=== PATIENT | male | born 1930 | race Caucasian/White ===

== ENCOUNTER → 2016-09-06 | Outpatient (CLI) | payer MEDICARE, BC ==
--- NOTE | 2016-09-06 13:29 | CT ---
EXAMINATION TYPE: CT lumbar spine wo con DATE OF EXAM: 09/06/2016 1:16 PM COMPARISON: NONE HISTORY: 86-year-old male with low back pain, spinal stenosis TECHNIQUE: Contiguous axial scanning of the lumbar spine without IV contrast. Coronal and sagittal re constructions performed. CT DLP: 833 mGycm Automated exposure control for dose reduction was used. FINDINGS: Multilevel advanced disc/endplate degenerative change with degenerated, desiccated, narrowed discs wi th disc osteophyte complex formation and endplate sclerosis. Vertebral body heights are preserved. Hypertrophic facet arthropathy mid to lower lumbar spine. There is a component of mild congenital spinal canal stenosis with AP canal dimension of 1.3 cm. There is grade 1 retrolisthesis at L3-L4 and L4-L5 secondary to facet arthropathy. A grade 1, nearly grade 2 anterolisthesis at L5-S1 secondary to bilateral L5 pars defects. The degenerative changes result in a dextroconvex scoliotic curvature of the lumbar spine. At T12-L1, there is some bulging disc and facet arthropathy. There may be mild right neuroforaminal s tenosis but no significant spinal canal stenosis. At L1-L2, diffuse bulging disc and facet arthropathy results in mild to moderate left neural foramina l stenosis without significant spinal canal stenosis. At L2-L3, there is disc osteophyte complex with facet arthropathy. Changes result in moderate left an d mild right neural foraminal stenosis with slight accentuation of the mild congenital canal narrowin g. At L3-L4, there is facet arthropathy with disc osteophyte complex and grade 1 retrolisthesis. Disc os teophyte complex may abut the traversing right L4 nerve root. There is moderate to severe left and mi ld right neuroforaminal stenosis. Mild narrowing of the spinal canal. At L4-L5, there is hypertrophic facet arthropathy, bulging disc, and grade 1 retrolisthesis. Changes result in moderate to severe right and [id number] left neuroforaminal stenosis. No spinal canal stenosis. At L5-S1, grade 1, nearly grade 2 anterolisthesis from bilateral L5 pars defects. There is hypertroph ic facet arthropathy and disc osteophyte complex. Changes result in severe right and mild left neurof oraminal stenosis. No significant spinal canal stenosis. IMPRESSION: 1. ADVANCED MULTILEVEL DISC/ENDPLATE DEGENERATIVE CHANGE WITH A DEGENERATED DEXTROCONVEX SCOLIOSIS. 2. HYPERTROPHIC FACET ARTHROPATHY MID TO LOWER LUMBAR SPINE WITH GRADE 1 RETROLISTHESES AT L3-L4 AND L4-L5. 3. ADDITIONAL GRADE 1, NEARLY GRADE 2 ANTEROLISTHESIS AT L5-S1 SECONDARY TO BILATERAL L5 PARS DEFECTS . 4. 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 NO ROXANE CANAL COMPROMISE. 5. VARIABLE MODERATE NEUROFORAMINAL STENOSES IN THE MID TO LOWER LUMBAR SPINE, SEVERE ON THE RIGHT AT L5-S1. 6. DISC OSTEOPHYTE COMPLEX AT L3-L4 MAY ABUT THE TRAVERSING RIGHT L4 NERVE ROOT.
--- NOTE | 2016-09-06 14:13 | XR ---
EXAMINATION TYPE: XR lumbar spine with bend/flex DATE OF EXAM: 09/06/2016 1:17 PM COMPARISON: Correlation CT same day HISTORY: 86-year-old male spinal stenosis, lumbar region, chronic low back pain TECHNIQUE: 8 views FINDINGS: There is a degenerated dextroconvex scoliosis. Advanced disc/endplate degenerative change at multiple levels with disc height loss, endplate scleros is, and spondylosis. Hypertrophic facet arthropathy throughout. There is grade 1 retrolisthesis at L3-L4 and L4-L5. There is anterolisthesis at L5-S1 which which acc entuates on flexion by approximately 4 mm. There is possible further accentuation of the anterolisthe sis on extension by approximately 1 cm. No significant accentuation of the L3-L4 L4-L5 retrolisthesis on extension. IMPRESSION: 1. Degenerated dextroconvex scoliosis. Degenerative grade 1 retrolistheses at L3-L4 and L4-L5. 2. Anterolisthesis at L5-S1 secondary to pars defects as seen on CT. There is dynamic subluxation wit h flexion (by 4 mm) and even greater dynamic anterior subluxation upon extension (nearly 1 cm).
== END ==
LOC: RADCTMAIN 12:40
PROVIDERS: ATTEND Neurological Surgery
DX: M48.06 Spinal stenosis, lumbar region (principal); M43.16 Spondylolisthesis, lumbar region; M47.816 Spondylosis without myelopathy or radiculopathy, lumbar region; M46.86 Other specified inflammatory spondylopathies, lumbar region; M41.86 Other forms of scoliosis, lumbar region; M43.5X6 Other recurrent vertebral dislocation, lumbar region
CPT/HCPCS: 72114; 72131

== ENCOUNTER → 2016-10-22 | Outpatient (CLI) | payer MEDICARE, BC ==
[~2016-10-22] MED LIST: REGADENOSON 0.4 MG/5 ML SYRINGE IV ONE
--- NOTE | 2016-10-22 13:26 | EST ---
DATE OF SERVICE: 10/22/2016 AGE: 86Y SEX: M HT: 5'9" WT: 204 lbs. Protocol Jae: Other: Lexiscan Cardiolite Stage: Dur. of Exercise: *Heart Rate Blood Pressure *Rest: 64 Rest: 179/57 * *Max. Achieved: 80 Maximum BP: 179/57 85% PMHR: 113 100% PMHR: 133 *METS: INDICATIONS: Pre-op. MEDICATIONS: The patient was given Lexiscan injection over a period of 15 seconds. Peak heart rate of 80 was achieved. Maximum blood pressure of 179/57 mmHg was noted. Resting EKG shows normal sinus rhythm with normal IN interval and QRS duration and normal ST-T waves. No ST segment depression suggestive of ischemia is noted. The results of the nuclear study will follow.
--- NOTE | 2016-10-22 13:59 | NM ---
"EXAMINATION TYPE: NM stress lexiscan cardiolite DATE OF EXAM: 10/22/2016 12:03 PM COMPARISON: NONE HISTORY: Preop TECHNIQUE: After the intravenous administration of 11 mCi Tc 99m Sestamibi - Cardiolite resting SPEC T images acquired 50 minutes post injection. The patient received 0.4mg Lexiscan, 27.5 mCi Tc 99m Sestamibi - Stress images obtained [address] injection FINDINGS: Review of stress and rest SPECT images demonstrates mild decreased reaffirms uptake along the inferol ateral left ventricular myocardium on stress and rest images. On stress images there is decreased upt leif along the anterolateral left ventricle as compared to rest images. Gated analysis shows normal w all motion with an estimated left ventricular ejection fraction of 60 %. 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
--- NOTE | 2016-10-24 11:33 | ECHOF ---
Referral Reason:Z01.81 pre op MEASUREMENTS -------- HEIGHT: 175.3 cm WEIGHT: 92.5 kg BP: 131/59 RVIDd: 3.1 cm (< 3.3) IVSd: 1.1 cm (0.6 - 1.1) LVIDd: 4.7 cm (3.9 - 5.3) LVPWd: 1.1 cm (0.6 - 1.1) IVSs: 1.7 cm LVIDs: 3.1 cm LVPWs: 1.6 cm LA Diam: 3.4 cm (2.7 - 3.8) LAESV Index (A-L): 19.00 ml/m Ao Diam: 2.7 cm (2.0 - 3.7) AV Cusp: 2.1 cm (1.5 - 2.6) MV EXCURSION: 18.221 mm (> 18.000) MV EF SLOPE: 36 mm/s (70 - 150) EPSS: 1.3 cm MV E Kyle: 0.58 m/s MV DecT: 323 ms MV A Kyle: 1.04 m/s MV E/A Ratio: 0.56 RAP: 5.00 mmHg RVSP: 30.53 mmHg FINDINGS -------- Sinus rhythm. This was a technically adequate study. The left ventricular size is normal. There is borderline concentric left ventricular hypertrophy. Overall left ventricular systolic function is normal with, an EF between 55 - 60 %. The right ventricle is normal in size and function. Normal LA size by volume 22+/-6 ml/m2. The right atrium is normal in size. There is mild aortic valve sclerosis. Mild mitral annular calcification present. Mild tricuspid regurgitation present. Right ventricular systolic pressure is normal at < 35 mmHg. The pulmonic valve was not well visualized. The aortic root size is normal. Normal inferior vena cava with normal inspiratory collapse consistent with estimated right atrial pressure of 5 mmHg. There is no pericardial effusion. CONCLUSIONS -------- 1. Sinus rhythm. 2. Mild mitral annular calcification present. 3. Mild tricuspid regurgitation present. 4. Right ventricular systolic pressure is normal at < 35 mmHg. 5. The pulmonic valve was not well visualized. 6. The aortic root size is normal. 7. Normal inferior vena cava with normal inspiratory collapse consistent with estimated right atrial pressure of 5 mmHg. 8. There is no pericardial effusion. 9. This was a technically adequate study. 10. The left ventricular size is normal. 11. There is borderline concentric left ventricular hypertrophy. 12. Overall left ventricular systolic function is normal with, an EF between 55 - 60 %. 13. The right ventricle is normal in size and function. 14. Normal LA size by volume 22+/-6 ml/m2. 15. The right atrium is normal in size. 16. There is mild aortic valve sclerosis. AIR[employer]FT IN[employer]UMENT ENGINEER: Estefania Herrera RDCS
== END ==
LOC: RADNMMAIN 09:05
PROVIDERS: ATTEND Internal Medicine
DX: Z01.818 Encounter for other preprocedural examination (principal)
CPT/HCPCS: 93017; 93306; 78452; A9500; J2785

== ENCOUNTER → 2016-11-06 | Outpatient (CLI) | payer MEDICARE, BC ==
[2016-11-06 08:18] LABS: CH 32.1; CHCM 33.7; HCT 45.3 % (39.0-53.0); HDW 2.51; HGB 15.2 gm/dL (13.0-17.5); MCH 32.2 pg (25.0-35.0); MCHC 33.7 g/dL (31.0-37.0); MCV 95.7 fL (80.0-100.0); Mean Platelet Volume 8.4; RBC 4.73 m/uL (4.30-5.90); RDW 13.4 % (11.5-15.5); WBC 6.8 k/uL (3.8-10.6)
[2016-11-06 09:26] LABS: Calcium 9.2 mg/dL (8.4-10.2); Potassium 4.6 mmol/L (3.5-5.1); Total Bilirubin 0.6 mg/dL (0.2-1.3); Total Protein 6.9 g/dL (6.3-8.2); Uric Acid 6.3 mg/dL (3.5-8.5)
== END ==
LOC: LABWHC1 07:18
PROVIDERS: ATTEND Internal Medicine
DX: E87.8 Other disorders of electrolyte and fluid balance, not elsewhere classified (principal); E87.4 Mixed disorder of acid-base balance; R53.83 Other fatigue
CPT/HCPCS: 36415; 80053; 80061; 84443; 84550; 85027

== ENCOUNTER → 2017-07-24 | Outpatient (CLI) | payer MEDICARE, BC ==
[2017-07-24 12:41] VITALS: BP 123/78; PULSE 76; RESP 20
--- NOTE | 2017-07-24 13:36 | P.CONS ---
History of Present Illness - Reason for Consult Consult date: 07/24/17 - History of Present Illness This is a 87 years old male with chronic history of severe low back pain started more than 6 years ago, he denies any initiating event he denies any history of trauma or heavy lifting or falling accident, reported the pain is constant increased with any activity and he was treated in the past with multiple lumbar epidural steroid injections done by Dr. [facility], and he reported that he had no benefit from the lumbar epidural steroid injections, pain mostly localized in the low back area, increased with any activity walking and bending, and it's interfering with his quality of life and ability to activity of daily livings, he denies any change in bowel movement or urination he denies any motor or sensory deficit, is able to ambulate on his own but the intensity of the pain interfering with his ability to ambulate Past Medical History Past Medical History: Hearing Disorder / Deafness, Hypertension, Musculoskeletal Disorder, Pneumonia Additional Past Medical History / Comment(s): Arthritis History of Any Multi-Drug Resistant Organisms: None Reported Additional Past Surgical History / Comment(s): outer rt. thigh sugery with dr. Hamlin Past Anesthesia/Blood Transfusion Reactions: No Reported Reaction Past Psychological History: Anxiety, Depression Smoking Status: Former smoker Medications and Allergies Home Medications Medication Instructions Recorded Confirmed Type Aspirin 1 tab PO DAILY 07/24/17 07/24/17 History FLUoxetine HCL 1 tab PO DAILY 07/24/17 07/24/17 History Levothyroxine Sodium [Synthroid] 1 tab PO DAILY 07/24/17 07/24/17 History Lisinopril [Zestril] 1 tab PO DAILY 07/24/17 07/24/17 History Lisinopril [Zestril] 1 tab PO DAILY 07/24/17 07/24/17 History Simvastatin [Zocor] 1 tab PO DAILY 07/24/17 07/24/17 History Vit C/E/Zn/Coppr/Lutein/Zeaxan 1 tab PO DAILY 07/24/17 07/24/17 History [Preservision Areds 2 Softgel] buPROPion [Wellbutrin] 1 tab PO DAILY 07/24/17 07/24/17 History Allergies Allergy/AdvReac Type Severity Reaction Status Date / Time Penicillins Allergy Rash/Hives Unverified 07/24/17 12:06 Physical Exam Vitals: Vital Signs Pulse Resp BP Pulse Ox 07/24/17 12:37 76 20 123/78 96 Intake and Output 07/23/17 07/24/17 07/24/17 22:59 06:59 14:59 Other: Weight 90.718 kg Patient Weight 07/25/17 06:59 Weight 90.718 kg Social history : not smoker , NO ETOH , NO Illegal drugs use Review of Systems : 1- Constitutional : no chills , no fever , no night sweats , 2- Ears : no ear discharge , no change in hearing 3-Nose, Mouth ,Throat ; no bleeding gums, no sore throat , no epistaxis , 4-Cardiovascular : Denies chest pain, , no orthopnea , no palpitation 5-Respiratory : Denies cough , no dyspnea , no hemoptysis 6-Gastrointestinal :, no change in bowel habits , no coffee- ground emesis . 7-Genitourinary : No hematuria , no discharge , no incontinence, 8-Musculoskeletal : gait dysfunction , report low back pain , 9- Neurological : no ataxia , no tremor , no sezure , 10-Psychatric , no suicidal ideation no hallucination 11- Endocrine : no cold intolerence , no polyuria , no polydypsia , 12-Hematologic : no easy bleeding , no easy brusing , 13-Allergic / immunology : no angioedema , no wheezing ,no allergic rhinitis 14-Integumentary : no brttle nails , no change hair / nails , no foot/leg ulcers . Physical Examinations : 1-Constitutional : Cooperative , not in acute distress . 2-HEENT : nech ; supple , no Lymphadenopathy , no Thyromegaly , :eyes , no icterus, no photophobia . ENT : , normal oropharynx , no Thrush 3- Respiratory : Chest clear to auscultations Bilaterally , no wheezing . 4- Cardiovascular : regular rate and rhythem , S1 , S2 , no S3 , no S4. 5- Gastrointestinal: abdomen soft no tenderness , no organomegally . 6- Genitourinary : Defferred . 7-Integumentary : No cellulitis , no ulcers , normal skin turgor , no cyanotic . 8- neurologic : Cranial nerve II to XII intact , no focal neurological deffecit 9-psychatric : alert , oriented X 3 , appropriate affect , intact judgment and insight . 10-Lymphatic : no Lymphadenopathy. 11- musculoskeltal: abnormal gait Lumber spine moter stegnth lower extremities ,thigh and legs 4- 5/5 Right side , 4-5/5 Left side deep tendon reflexes : normal Knee Jerk , normal ankle Jerk positive lumber facet Loading Test Range of motion of the lumbar spine Flexion 60 degrees, extension 10 degrees strait leg raising test negative Fabere test negative mild tenderness over the Sacroiliac joint on the R and L sides Results Comments: Computed tomography scan of the lumbar spine showed multilevel lumbar degenerative disc disease and multilevel lumbar facet arthropathy Assessment and Plan Plan: Assessment and plan= chronic low back pain secondary to lumbar degenerative disc disease , lumbar spondylosis with lumbar facet arthropathy , Clinically most of the pain coming from the facetogenic component, patient could benefit from diagnostic medial branch block lumbar area and L34/L4-L5/L5- S1 we will do it , twice and if he had good results then we will proceed with a radiofrequency ablation of the medial branch lumbar area procedure risk and benefits and alternatives discussed with the patient he agreed with the preceding Time with Patient: Greater than 30
== END | disposition home or self-care (01) ==
LOC: PNWHC3 11:13
PROVIDERS: ATTEND Specialist
DX: G89.29 Other chronic pain (principal); M54.5 Low back pain; M51.36 Other intervertebral disc degeneration, lumbar region; M47.816 Spondylosis without myelopathy or radiculopathy, lumbar region; M46.86 Other specified inflammatory spondylopathies, lumbar region; H91.90 Unspecified hearing loss, unspecified ear; I10 Essential (primary) hypertension; F41.9 Anxiety disorder, unspecified; F32.9 Major depressive disorder, single episode, unspecified; Z79.52 Long term (current) use of systemic steroids; Z98.890 Other specified postprocedural states; Z87.891 Personal history of nicotine dependence; Z79.82 Long term (current) use of aspirin; Z79.899 Other long term (current) drug therapy; Z88.0 Allergy status to penicillin
CPT/HCPCS: 99211

== ENCOUNTER 2017-07-29 08:46 | Day surgery (SDC) | payer MEDICARE, BC ==
[2017-07-28 11:22] VITALS: BMI 29.5
[2017-07-29 09:40] VITALS: RESP 16; TEMP 97.4
[2017-07-29] MEDS ORDERED: LACTATED RINGERS 1,000 ML IV SCH (09:45)
[2017-07-29] MEDS ORDERED: LIDOCAINE 1% 20 ML VIAL (10MG/ML) FOR IV START INTRADERMA ONE (09:51)
--- NOTE | 2017-07-29 10:35 | P.PCN ---
Date of Procedure: 07/29/17 Surgeon: Narciso Rivers Pathology: none sent Condition: stable Disposition: PACU Description of Procedure: PREOPERATIVE DIAGNOSIS: Lumbar spondylosis without myelopathy and facet arthropathy. POSTOPERATIVE DIAGNOSIS: Lumbar spondylosis without myelopathy and facet arthropathy. PROCEDURE DESCRIPTION: Patient presents for L3-L4, L4-L5 and L5-S1 diagnostic medial branch blocks under fluoroscopic guidance. The procedure is performed using fluoroscopic guidance during needle placement to assure proper position and maximize safety. ANESTHESIA: Local with 1% lidocaine; conscious sedation EBL: Minimal PROCEDURE INDICATION: Patient with lumbar facet arthropathy signs and symptoms, here for diagnostic medial branch block #1 due to failure of conservative therapy. Pt does not take any blood thinning medications. PROCEDURE DESCRIPTION: The patient was seen and identified in the preoperative area. Risks, benefits, complications, and alternatives were discussed with the patient (including but not limited to incomplete pain relief, bleeding, infection, nerve damage, and allergies to medications), the patient agreed to proceed with the procedure and signed the consent after all questions were answered. Patient was taken to the OR and time out was completed to verify proper patient, position, laterality of pain, and allergies. Pt was placed in the prone position and a pillow was placed under the abdomen to reduce lumbar lordosis. The lumbosacral area was prepped and draped in the usual sterile fashion. Using oblique fluoroscopy, the eye of the "Macario dog" of right L4 vertebral body, which corresponds to the path of the medial branch originating from the level above, which is L3 in this case, was identified. Subsequently, a 22-gauge 3.5-inch spinal needle was inserted under fluoroscopic guidance toward the eye of the "Macario dog" of the right L4 vertebral body, corresponding to the junction of the superior articular process and the transverse process of the pedicle of the same level. After needle tip confirmation on lateral view and after negative aspiration for CSF and blood and without paresthesias, 1 mL of a 6 ml solution of 0.5% preservative-free bupivacaine and 40 mg Kenalog was injected. Subsequently the needle was withdrawn intact and the same procedure was repeated for the right L4, right L5, left L3, left L4, and left L5 medial branches which together with right L3 medial branch correspond to the sensory innervation of the bilateral L3-L4, L4-L5, and L5-S1 facet joints. Needle was withdrawn intact after each injection. At the end of the procedure, the skin was cleansed and bandages were applied. COMPLICATIONS: None. DISPOSITION/PLAN: The patient taken to the recovery area after the procedure in a stable condition for observation. Patient was reexamined prior to discharge and there were no issues. Patient was discharged home, accompanied by an adult, after meeting discharged criteria. Discharge instructions were give to the patient by the staff. Patient was specifically instructed not to drive today and to rest for the rest of the day. Patient will return for repeat LMBB bilateral in 3-4 weeks.
[2017-07-29 10:46] VITALS: BP 113/66; PULSE 71
[2017-07-29] MEDS ORDERED: IV FLUID CONTINUATION 1,000 ML IV ONE (10:46)
--- NOTE | 2017-07-29 11:20 | FL ---
Fluoroscopy HISTORY: Pain 23 seconds fluoroscopy time supplied to the referring clinician. 6 intraoperative C-arm images docum ent the procedure. See dictated report from anesthesia.
== END 2017-07-29 11:27 | disposition home or self-care (01) ==
LOC: ORPAIN 08:46
PROVIDERS: ATTEND Anesthesiology
DX: G89.29 Other chronic pain (principal); M48.061 Spinal stenosis, lumbar region without neurogenic claudication; M51.36 Other intervertebral disc degeneration, lumbar region; M47.816 Spondylosis without myelopathy or radiculopathy, lumbar region; I10 Essential (primary) hypertension; F32.9 Major depressive disorder, single episode, unspecified; M19.90 Unspecified osteoarthritis, unspecified site; F41.9 Anxiety disorder, unspecified; H91.90 Unspecified hearing loss, unspecified ear; Z88.0 Allergy status to penicillin; Z79.82 Long term (current) use of aspirin; Z79.899 Other long term (current) drug therapy; Z87.891 Personal history of nicotine dependence
CPT/HCPCS: 64493; 64494; 64495; J2250; J3301; 99152

== ENCOUNTER 2017-08-19 08:22 | Day surgery (SDC) | payer MEDICARE, BC ==
[2017-08-12 12:28] VITALS: BMI 29.1
[~2017-08-19 08:22] MED LIST changes: +LACTATED RINGERS 1,000 ML IV SCH; -REGADENOSON 0.4 MG/5 ML SYRINGE IV ONE
[2017-08-19 08:39] VITALS: RESP 16; TEMP 97.2
--- NOTE | 2017-08-19 10:05 | P.PCN ---
Date of Procedure: 08/19/17 Surgeon: Emil St Description of Procedure: PREOPERATIVE DIAGNOSIS : 1- Lumbar spondylosis with Facet Arthropathy without myelopathy . 2- Lumber degenerative disc disease POSTOPERATIVE DIAGNOSIS: 1- Lumbar spondylosis with Facet Arthropathy without myelopathy . 2- Lumber degenerative disc disease PROCEDURE: Diagnostic bilateral L3 -4 , L4 -5 , and L5-S1 medial branch block under fluoroscopy ANESTHESIA: Local with 1% lidocaine; IV sedation with Versed 2 mg . EBL: Minimal COMPLICATION: None. PROCEDURE INDICATION: Chronic low back pain secondary to Facet arthropathy unresponsive to conservative treatment. PROCEDURE DESCRIPTION: the patient was seen and identified in the preop holding area , risks and benefits and possible complications of the procedure and alternatives were discussed with the patient, and the patient agreed to proceed with the procedure and signed the consent. IV was started and vital signs monitored during the procedure and fluoroscopy was used to maximize the benefit and accuracy of the needle placement, sedation was given to decrease patient anxiety, patient was taken to the procedure room and placed in prone position vital signs monitored. The patient was seen in the preop holding area consent was obtained then she was brought into the procedure room and placed in prone position. Skin was prepped with Chloraprep and draped in a sterile manner. Lidocaine 1% was used to numb the skin up at the target points that were chosen as follows: at the L5-S1 level which corresponds to the dorsal ramus of L5 the target points were at the superior medial aspect of the sacral ala on each side of the spine on the AP view of fluoroscopy, and for theL2, L3 and L4 medial branches the target points were the connection between the transverse process and the superior to go process of L3, L4 and L5 respectively on the oblique views of fluoroscopy. I used 22-gauge 3-1/2 inch Quincke spinal needles for this procedure and after contacting bone at the target points mentioned above I injected 1 mL of a mixture of 40 mg of Kenalog and 5 mls of Marcaine 0.5% PF . Patient tolerated procedure well. At the end of the procedure the needles removed and a bandage applied after the skin was cleaned the cleaning solution. patient was then taken to the recovery room in stable condition and monitored in the recovery room for 20-30 minutes and discharged home in stable condition after discharge criteria met .
[2017-08-19] MEDS ORDERED: IV FLUID CONTINUATION 1,000 ML IV ONE (10:11)
[2017-08-19 10:26] VITALS: BP 134/65; PULSE 67
--- NOTE | 2017-08-19 11:23 | FL ---
EXAMINATION TYPE: FL guided pain mgmt statistic DATE OF EXAM: 08/19/2017 HISTORY: Flouroscopy time 19 seconds of fluoroscopy provided. IMPRESSION: 1. Fluoroscopy time.
== END 2017-08-19 10:56 | disposition home or self-care (01) ==
LOC: ORPAIN 08:22
PROVIDERS: ATTEND Anesthesiology
DX: G89.29 Other chronic pain (principal); M47.816 Spondylosis without myelopathy or radiculopathy, lumbar region; M51.36 Other intervertebral disc degeneration, lumbar region; I10 Essential (primary) hypertension
CPT/HCPCS: 64493; 64494; 64495; J2250; J3301; 99152

== ENCOUNTER → 2017-10-27 | Outpatient (CLI) | payer MEDICARE, BC ==
[2017-10-27 12:04] VITALS: BP 116/71; PULSE 77; RESP 16; TEMP 97.7
--- NOTE | 2017-10-27 12:19 | P.PN ---
Progress Note - Text Progress Note Date: 10/27/17 Patient returns for followup for chronic back pain with radiation to both lower extremities. Patient recently underwent bilateral lumbar MBB x 2, which provided him no relief, not even for one day. Patient continues on no regular opioid medications for pain and still complains of back and hip pain. Patient denies adverse drug effects from medications. Today, pt denies new-onset weakness, bowel/bladder incontinence, or any other signs or symptoms of cauda equina syndrome. There are no signs of acute intoxication, and no indications of medication diversion or overuse. In addition to above, 13-point review of systems is also negative for chest pain , shortness of breath, changes in vision, changes in hearing, new onset weakness , abdominal pain, diarrhea, extreme fatigue, malaise, fever, skin changes, homicidal or suicidal ideation, or bowel or bladder incontinence. Vital Signs: Reviewed in EMR Gen: WDWN, AAOx3, NAD HEENT: NCAT, EOMI, hearing grossly normal Pulm: resp unlabored Abd: soft, NT, ND Neck: supple, trachea midline ROM in flexion lumbar spine: reduced ROM in extension lumbar spine: reduced Lumbar paravertebral tenderness: + Facet loading: + bilateral, L > R SI joint tenderness: + bilateral Brodie's test: + RLE > LLE Straight leg raise: neg Imaging: Reviewed in EMR Assessment: 1. lumbar spondylosis without myelopathy 2. chronic pain syndrome 3. lumbar DDD Plan: 1. Explanation: Opioid and psychological risk scores were reviewed. Diagnoses , prognoses, and multiple treatment options including but not limited to physical therapy, interventional therapies, adjuvant medical therapies, narcotic medication therapies, and surgery were discussed with the patient and all questions were answered to the patient's satisfaction. 2. Opioid agreement: no opioids prescribed today 3. Counseling: The patient was counseled extensively on BODY MASS INDEX, EXERCISE. Specifically, the patient was instructed regarding the importance of weight control, and exercise in the context of both chronic pain and overall health. 4. Procedures: bilateral SIJ injection 5. Consultations: None 6. Investigations: UDS not done today, MAPS queried and appropriate 7. Medications: none prescribed 8. Disposition: f/u for procedure as scheduled PQRS measures: 1-Patient's medications are documented in the chart. 2-Tobacco use is negative 3-Patient has not had a pneumococcal vaccine. 4-Advanced care planning discussed, patient unable to give. 5-Opioid contract NOT signed with the patient. 6-Pain positive, follow-up visit or procedure scheduled 7-Patient's blood pressure measured and documented, and WNL. 8-Patient's weight was measured, and body mass index ABOVE the normal limits, and counseling was done. Patient instructed to follow up with PCP. 9-Patient WAS NOT identified as an unhealthy alcohol user.
== END | disposition home or self-care (01) ==
LOC: PNWHC3 11:37
PROVIDERS: ATTEND Anesthesiology
DX: G89.4 Chronic pain syndrome (principal); M51.36 Other intervertebral disc degeneration, lumbar region; M47.816 Spondylosis without myelopathy or radiculopathy, lumbar region
CPT/HCPCS: 99211

== ENCOUNTER 2017-11-03 09:39 | Day surgery (SDC) | payer MEDICARE, BC ==
[2017-10-29 15:20] VITALS: BMI 29.1
[2017-11-03 10:00] VITALS: TEMP 97
--- NOTE | 2017-11-03 11:03 | P.PCN ---
Date of Procedure: 11/03/17 Procedure(s) Performed: Preoperative diagnoses= 1-bilateral sacroiliac joint dysfunction. 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 Procedure= bilateral sacroiliac joint steroid injection under fluoroscopic guidance. Anesthesia= moderate sedation with Versed 2 mg ,and local infiltration with lidocaine 1% 4 ml Estimated blood loss=minimal. Procedure indication= the patient had a history of severe chronic low back pain , diagnosed with sacroiliitis and lumbar sacral facet arthropathy unresponsive to conservative treatment. Procedure description= the patient was seen and identified in the preoperative holding area, risks and benefits and alternative of the procedure and possible complications discussed with the patient, and he agreed with the preceding, patient signed the consent, an IV was started, and vital signs were monitored and were stable throughout the procedure, patient was placed in the prone position or table and the lumbosacral area was prepped and draped with a sterile fashion, vital signs were closely monitored during the procedure, the fluoroscopy camera was placed in the contralateral oblique view on the right sacroiliac joint and the lower part of the joint was identified, local infiltration of the skin and subcutaneous tissue with lidocaine 1% 2 mL then a 22-gauge Quincke-type spinal needle advanced slowly under fluoroscopy and placed in the posterior and inferior border of the right sacroiliac joint, placement confirmed with AP and lateral view, and after appropriate needle placement confirmed and after negative aspiration for heme and CSF and there was no paresthesia during the injection, 3 ml of Marcaine 0.5% and 30 mg of Kenalog injected after negative aspiration, the needle removed, and the entire same procedure was repeated for the left sacroiliac joint Patient tolerated the procedure well without any complication, The patient returned to supine position after the back was cleaned and a Band- Aid applied, the patient transported to recovery room in stable condition and he was monitored for 30 minutes before he was discharged home and then patient was reexamined before going home and patient was discharged in stable condition and patient will follow up with the pain clinic in a few weeks
[2017-11-03] MEDS ORDERED: IV FLUID CONTINUATION 1,000 ML IV ONE (11:06)
[2017-11-03 11:23] VITALS: BP 138/73; PULSE 69; RESP 16
--- NOTE | 2017-11-05 10:20 | FL ---
Fluoroscopy HISTORY: Pain 19 seconds fluoroscopy time supplied to the referring clinician. 2 intraoperative C-arm images docum ent the procedure. See dictated report from anesthesia.
== END 2017-11-03 11:31 | disposition home or self-care (01) ==
LOC: ORPAIN 09:39
PROVIDERS: ATTEND Specialist
DX: G89.29 Other chronic pain (principal); M46.1 Sacroiliitis, not elsewhere classified; M47.816 Spondylosis without myelopathy or radiculopathy, lumbar region; M51.36 Other intervertebral disc degeneration, lumbar region; I10 Essential (primary) hypertension; E07.9 Disorder of thyroid, unspecified; Z88.0 Allergy status to penicillin
CPT/HCPCS: J2250; J3301; G0260; 99152

== ENCOUNTER 2017-12-04 07:31 | Day surgery (SDC) | payer MEDICARE, BC ==
[2017-11-28 13:05] VITALS: BMI 29.1
[2017-12-04 07:53] VITALS: RESP 16; TEMP 97.5
--- NOTE | 2017-12-04 08:23 | P.PCN ---
Date of Procedure: 12/04/17 Surgeon: Chris Red Description of Procedure: Preoperative diagnoses: Bilateral sacroilitis Postoperative diagnoses: Bilateral sacroilitis. Procedure: Bilateral sacroiliac joint steroid injection under fluoroscopic guidance. Surgeon: Chris Red MD Anesthesia: IV sedation per hospital guidelines EBL: None Procedure indication: The patient had a history of severe chronic low back pain , diagnosed with sacroiliitis and lumbar sacral facet arthropathy unresponsive to conservative treatment. Procedure description: The patient was seen and identified in the preoperative holding area, risks and benefits and alternative of the procedure and possible complications discussed with the patient, and he agreed with the preceding, patient signed the consent, an IV was started, and vital signs were monitored and were stable throughout the procedure, patient was placed in the prone position or table and the lumbosacral area was prepped and draped with a sterile fashion, vital signs were closely monitored during the procedure, the fluoroscopy camera was placed in the contralateral oblique view on the right sacroiliac joint and the lower part of the joint was identified a 2 mL then a 25 -gauge Quincke-type spinal needle advanced slowly under fluoroscopy and placed in the posterior and inferior border of the right sacroiliac joint, placement confirmed with AP and lateral view, and after appropriate needle placement confirmed and after negative aspiration for heme and CSF and there was , 3 ml of Marcaine 0.5% and 20 mg of Kenalog injected after negative aspiration, no paresthesia during the injection, no resistance to injection, and the needle was removed. The entire same procedure was repeated for the left sacroiliac joint Patient tolerated the procedure well without any complication. The patient returned to supine position after the back was cleaned and a Band- Aid applied, the patient transported to recovery room in stable condition and he was monitored for 30 minutes before he was discharged home and then patient was reexamined before going home and patient was discharged in stable condition and patient will follow up for repeat of this procedure in 2-4 weeks.
[2017-12-04 08:43] VITALS: BP 145/70; PULSE 74
--- NOTE | 2017-12-04 10:12 | FL ---
Fluoroscopy HISTORY: Pain 2 seconds fluoroscopy time supplied to the referring clinician. 2 intraoperative C-arm images docume nt the procedure. See dictated report from anesthesia.
== END 2017-12-04 09:03 | disposition home or self-care (01) ==
LOC: ORPAIN 07:31
PROVIDERS: ATTEND Pain Medicine Pain Medicine
DX: M46.1 Sacroiliitis, not elsewhere classified (principal); G89.29 Other chronic pain; M47.817 Spondylosis without myelopathy or radiculopathy, lumbosacral region; Z88.0 Allergy status to penicillin
CPT/HCPCS: J3301; G0260

== ENCOUNTER 2017-12-30 08:14 | Day surgery (SDC) | payer MEDICARE, BC ==
[2017-12-24 15:32] VITALS: BMI 29.5
[2017-12-30 09:30] VITALS: TEMP 97.4
[2017-12-30] MEDS: LACTATED RINGERS 1,000 ML IV SCH ×2 (09:38→09:54)
[2017-12-30] MEDS ORDERED: IV FLUID CONTINUATION 900 ML IV ONE (10:12)
--- NOTE | 2017-12-30 10:19 | P.PCN ---
Date of Procedure: 12/30/17 Surgeon: Narciso Rivers Pathology: none sent Condition: stable Disposition: PACU Description of Procedure: PREOPERATIVE DIAGNOSIS: 1-Bilateral sacroiliitis. 2 Lumbar DDD POSTOPERATIVE DIAGNOSIS:. 1-Bilateral sacroiliitis. 2 Lumbar DDD PROCEDURES: Bilateral Sacroiliac joint steroid injection with fluoroscopic guidance ANESTHESIA: Local with 1% lidocaine; conscious sedation EBL: Minimal. PROCEDURE INDICATIONS: This patient with a history of low back pain secondary to sacroiliitis and lumbar DDD unresponsive to conservative management. Two weeks' relief from previous SIJ injection. Patient uses 81 mg aspirin daily. PROCEDURE DESCRIPTION: The patient was seen and identified in the preoperative area. Risks, benefits, complications, and alternatives were discussed with the patient (including but not limited to incomplete pain relief, bleeding, infection, nerve damage, and allergies to medications), the patient agreed to proceed with the procedure and signed the consent after all questions were answered. Patient was taken to the OR and time out was completed to verify proper patient , position, laterality of pain, and allergies. Pt was placed in the prone position and a pillow was placed under the abdomen to reduce lumbar lordosis. The lumbosacral area was prepped and draped in the usual sterile fashion. Critical pause was taken. Vital signs were closely monitored during the procedure. The fluoroscopic camera was placed in contralateral oblique view and right sacroiliiac joint lower pole was identified. After local infiltration with 1% lidocaine 2 ml, Subsequently, a 22-gauge 3.5 inch spinal needle was introduced into the posteroinferior aspect of the right sacroiliac joint under direct fluoroscopic visualization. Subsequently, 3 ml of a solution of a total of 6 ml solution containing total 5 mL of 0.5% preservative-free bupivicaine mixed with 40 mg of Kenalog was injected after negative aspiration for CSF, blood, and air and negative for paresthesia. The entire procedure was repeated on the left side as above. Needle was withdrawn intact. Skin was cleansed, and bandages were applied. COMPLICATIONS: None. COMMENTS: DISPOSITION / PLANS: The patient was placed in a supine position and transferred to the recovery area in a stable condition for observation and was discharged from the recovery room after meeting discharge criteria. Home discharge instructions given to the patient by the staff. The patient was reexamined prior to discharge. The patient will schedule a follow up in clinic in 2-4 weeks to discuss efficacy.
[2017-12-30 10:24] VITALS: RESP 16
[2017-12-30 10:30] VITALS: BP 156/80; PULSE 71
--- NOTE | 2017-12-30 11:09 | FL ---
EXAMINATION TYPE: FL guided pain mgmt statistic DATE OF EXAM: 12/30/2017 HISTORY: Flouroscopy time 5 seconds of fluoroscopy provided. IMPRESSION: 1. Fluoroscopy time.
== END 2017-12-30 10:44 | disposition home or self-care (01) ==
LOC: ORPAIN 08:14
PROVIDERS: ATTEND Anesthesiology
DX: M46.1 Sacroiliitis, not elsewhere classified (principal); M51.36 Other intervertebral disc degeneration, lumbar region; M53.3 Sacrococcygeal disorders, not elsewhere classified; F43.10 Post-traumatic stress disorder, unspecified; T14.8XXA Other injury of unspecified body region, initial encounter; W19.XXXA Unspecified fall, initial encounter; Z88.0 Allergy status to penicillin; Z79.82 Long term (current) use of aspirin
CPT/HCPCS: J3301; Q9966; G0260

== ENCOUNTER → 2018-03-10 | Outpatient (CLI) | payer MEDICARE, BC ==
[2018-03-10 12:06] VITALS: BP 112/67; PULSE 77; RESP 18
--- NOTE | 2018-03-10 12:38 | P.PAINPG ---
Subjective Progress Note Date: 03/10/18 Principal diagnosis: Right-sided low back pain This is a pleasant 87-year-old gentleman with a history of right-sided low back pain. He is undergone previous sacroiliac joint injections as well as medial branch nerve blocks. He reports that these have not helped him. He is currently planning to undergo another lumbar spine MRI and then go to the [facility] to be evaluated for spine surgery. He denies any lumbar radicular symptoms. His pain is worse when he is walking for a period of time. He reports that he has had epidurals done in the past and they were not helpful for him. Objective - Vital Signs Vital signs: Vital Signs Temp Pulse 77 03/10/18 12:01 Resp 18 03/10/18 12:01 BP 112/67 03/10/18 12:01 Pulse Ox 97 03/10/18 12:01 Intake & Output 03/09/18 03/10/18 03/10/18 18:59 06:59 18:59 Weight 92.533 kg - Exam General: The patient is alert and oriented. Patient is not sedated Patient answers all question appropriately. Cardiac: Heart is regular in rate and rhythm Respiratory: Clear to auscultation. No audible wheezes. Abdomen: Soft nontender nondistended. Lower extremities: Strength is normal bilaterally. Sensation is normal bilaterally. Reflexes are preserved and symmetric bilaterally. Straight leg raise is negative bilaterally. He is not tender to palpation over his lumbar spine or his sacrum. Assessment and Plan (1) Lumbar spinal stenosis Narrative/Plan: Plan of Care 1. Medications: Patient is not being prescribed any medications. I recommended he utilize Tylenol on an as-needed basis. I have reviewed the patient's MAPS report and it reveals expected results. Patient has signed an opiate agreement as well as opiate consent for treatment in our clinic. They understand the risks and benefits of opiate medications. They are aware of the potential for addiction. 2. Interventions: Patient will schedule a follow-up appointment to discuss the results of his new MRI and see if he is a candidate for any interventional procedures. Current Visit: Yes Status: Acute Code(s): M48.061 - SPINAL STENOSIS, LUMBAR REGION WITHOUT NEUROGENIC JENNY SNOMED Code(s): 25682941 PQRS Measure Charge Sheet Measure #130: Documentation of Current Meds in Medical Chart: Patient's medications documented in chart Measure #226: Tobacco Use: Screen & Cessation Intervention: Pt not a tobacco user Measure #111: Pneumonia Vaccination: Pneumococcal vaccine NOT administered or previously given Measure #47: Advance Care Plan: Advance care planning discussed & documented, pt chose/unable to give Measure #412: Opioid Treatment Agreement: No documentation of signed opioid treatment agreement Measure #408: Opioid Therapy Follow-up Evaluation: Patient had NO f/u eval minimum every 3 months during opioid therapy Measure #317: Preventitive Care & Scrn High Bld Press & F/U: Normal blood pressure, f/u not required Measure #128: Body Mass Index (BMI) Screening & Follow-up: BMI documented ABOVE normal parameters - f/u documented Measure #131: Pain Assessment & Follow-up: Pain positive & plan documented Measure #431: Unhealthy Alcohol Use Preventative Care & Scrn: Patient not identified as an unhealthy alcohol user PQRS Narrative: Smoking Status Former smoker Blood Pressure 112/67 Pain Intensity [Bilateral 5 Lower Back] Scale Used Numeric (1 - 10) Hx Alcohol Use (MH) No Home Medications: Ambulatory Orders Aspirin 81 mg PO HS 07/24/17 FLUoxetine HCL 40 mg PO BID 07/24/17 Lisinopril [Zestril] 10 mg PO DAILY 07/24/17 Simvastatin [Zocor] 20 mg PO HS 07/24/17 Vit C/E/Zn/Coppr/Lutein/Zeaxan [Preservision Areds 2 Softgel] 1 tab PO BID 07/24 buPROPion [Wellbutrin] 150 mg PO DAILY 07/24/17 Allopurinol [Zyloprim] 100 mg PO DAILY PRN 07/28/17 clonazePAM [KlonoPIN] 0.5 mg PO BID 07/28/17 Controlled Substance Measures - Controlled Substance Measures Is patient prescribed a controlled substance at discharge?: No
== END | disposition home or self-care (01) ==
LOC: PNWHC3 03-05 12:21
PROVIDERS: ATTEND Pain Medicine Pain Medicine
DX: M48.061 Spinal stenosis, lumbar region without neurogenic claudication (principal); Z79.899 Other long term (current) drug therapy
CPT/HCPCS: 99211

== ENCOUNTER → 2018-03-28 | Outpatient (CLI) | payer MEDICARE, BC ==
--- NOTE | 2018-03-29 13:13 | MR ---
EXAMINATION TYPE: MR lumbar spine wo/w con DATE OF EXAM: 03/28/2018 COMPARISON: NONE HISTORY: Spinal stenosis /Low back pain CONTRAST: 9 mL Gadavist. TECHNIQUE: T1 and T2 axial and sagittal images of the lumbar spine are submitted. FINDINGS: There is no abnormal signal seen within the visualized spinal cord or paraspinal soft tissu es. There is severe degenerative disc disease at all levels with loss of disc spacing discogenic marrow c hanges. Grade 1 anterolisthesis of L5 on S1. At T12-L1 there is facet arthropathy and ligamentum flavum hypertrophy. Mild bilateral neural foramin al arch with mild circumferential disc bulging At L1-2 there is severe degenerative disc disease with facet arthropathy and ligamentum flavum hypert rophy. There is mild bilateral foraminal encroachment greater on the left. Disc bulging results in mi ld effacement of thecal sac and borderline central At L2-3 there is severe degenerative disc disease with ligamentum flavum and facet arthropathy and hy pertrophy. Mild bilateral foraminal encroachment. Diffuse disc bulging and hypertrophic changes resul t in borderline central At L3-4 there is severe degenerative disc disease with diffuse disc bulging, hypertrophy ligamentum f lavum and facet joints resulting in mild central stenosis mild to moderate bilateral foraminal encroa chment greater on the left At L4-5 there is diffuse disc bulging with hypertrophy ligamentum flavum and facet joints resulting i n mild to moderate central stenosis and severe right-sided foraminal encroachment and mild to moderat e left foraminal encroachment. At L5-S1 there is advanced facet arthropathy result in a grade 1 anterolisthesis. Broad-based central disc bulging results in effacement of thecal sac. There is moderate to severe right-sided foraminal encroachment and mild to moderate left foraminal encroachment IMPRESSION: 1. Severe degenerative disc disease at all levels with grade 1 anterolisthesis L5 on S1 which appears degenerative. 2. Multilevel borderline to mild central stenosis with the most marked findings seen at L3-4 and L4-5 . 3. Multilevel foraminal encroachment with severe findings at L4-L5 on the right
== END ==
LOC: RADMRIMAIN 13:53
PROVIDERS: ATTEND Internal Medicine
DX: M48.061 Spinal stenosis, lumbar region without neurogenic claudication (principal); M43.17 Spondylolisthesis, lumbosacral region; M51.37 Other intervertebral disc degeneration, lumbosacral region; M47.817 Spondylosis without myelopathy or radiculopathy, lumbosacral region
CPT/HCPCS: 82565; 72158; 36415; A9581

== ENCOUNTER → 2019-02-19 | Outpatient (CLI) | payer MEDICARE, BC ==
[2019-02-19 09:18] LABS: Basophils % (A) 0 %; Eosinophils # (A) 0.2 k/uL (0-0.7); Eosinophils % (A) 2 %; HGB 14.2 gm/dL (13.0-17.5); Lymphocytes # (A) 1.5 k/uL (1.0-4.8); Lymphocytes % (A) 19 %; MCH 32.3 pg (25.0-35.0); MCHC 33.9 g/dL (31.0-37.0); MCV 95.3 fL (80.0-100.0); Mean Platelet Volume 7.9; Monocytes # (A) 0.5 k/uL (0-1.0); Monocytes % (A) 7 %; Neutrophils # (A) 5.4 k/uL (1.3-7.7); Neutrophils % (A) 70 %; Platelet Count 179 k/uL (150-450); RDW 13.6 % (11.5-15.5); WBC 7.8 k/uL (3.8-10.6)
[2019-02-19 17:13] LABS: African American GFR (CKD) 51.3 (60.0-200.0); Albumin 3.9 g/dL (3.80-4.90); Albumin/Globulin Ratio 2.44 (1.60-3.17); Anion Gap 9.2 mmol/L (4.00-12.00); BUN/Creat Ratio 21.43 Ratio (12.00-20.00); Calcium 8.9 mg/dL (8.7-10.3); Carbon Dioxide 23.8 mmol/L (21.6-31.8); Globulin 1.6 g/dL (1.6-3.3); Potassium 4.8 mmol/L (3.5-5.5); Total Bilirubin 0.4 mg/dL (0.2-1.2); Total Protein 5.5 g/dL (6.2-8.2)
== END | disposition home or self-care (01) ==
LOC: LABWHC1 08:42
PROVIDERS: ATTEND Internal Medicine
DX: E78.5 Hyperlipidemia, unspecified (principal); D64.9 Anemia, unspecified; R79.9 Abnormal finding of blood chemistry, unspecified
CPT/HCPCS: 36415; 80053; 80061; 85025